=== PATIENT | female | born 1980 | race Caucasian/White ===

== ENCOUNTER → 2019-10-07 13:56 | Outpatient (CLI) | payer OTHER, SELFPAY ==
--- NOTE | ~2019-10-07 | MMUS_ITS ---
EXAMINATION: MM diagnostic jewell BI w arianne, US breast BI limited HISTORY: Reported lump left breast at 10:00. Patient reports 2:00 lump of the left breast. TECHNIQUE: 3-D ML, MLO, CC tomosynthesis images of both breasts were performed and synthetic 2-D imag es were generated. CAD analysis was submitted and interpreted. High resolution right upper outer quad rant and left upper inner and upper outer quadrant breast ultrasound was performed. COMPARISON: None BREAST PARENCHYMAL COMPOSITION: The breasts are heterogeneously dense, which may obscure small masses . FINDINGS: MAMMOGRAPHIC FINDINGS: There is a 1.6 cm rounded upper outer right breast partially obscured mass. No other suspicious mass of either breast is evident mammographically. No malignant calcification, a rchitectural distortion, skin thickening or retraction is detected. ULTRASOUND: Right breast: 9:00 3 cm from nipple: 1.4 x 0.7 x 1.1 cm multilocular cyst, benign in appearance 12:00 subareolar area: 4 x 5 mm simple cyst Left breast: 2-3:00 9 cm from nipple: Benign-appearing 3.5 x 8 mm lymph node IMPRESSION: 1. No mammographic evidence of malignancy 2. Routine annual mammographic screening is recommended BI-RADS Category 2: Benign finding(s). Reviewed, dictated and finalized at location A. RAL SERVICE TECHNICIAN IMPRESSION: 1. No mammographic evidence of malignancy 2. Routine annual mammographic screening is recommended BI-RADS Category 2: Benign finding(s).
== END ==
PROVIDERS: Visit Provider Nurse Practitioner
DX: N63.20 Unspecified lump in the left breast, unspecified quadrant (principal)
CPT/HCPCS: 76642; 77062; 77066; G0279

== ENCOUNTER 2019-12-24 07:42 | Outpatient (CLI) | payer OTHER, SELFPAY ==
--- NOTE | ~2019-12-24 | US_ITS ---
US breast LT limited DATE: 12/24/2019 08:14 INDICATION: Left breast lump for 2 months TECHNIQUE: Real-time imaging of the upper outer quadrant of left breast targeted to the current 1:00 area of complaint of left breast lump and previously reported to 2-3:00 lymph node COMPARISON: 10/07/2019 CT bilateral diagnostic digital mammogram 11/03/2019 bilateral Limited breast ultrasound examination FINDINGS: 1:00 3 cm from nipple at area of complaint of left breast lump: Parallel circumscribed hypo echoic approximately 4 x 6 mm lesion without internal vascularity or posterior shadowing. This may be a complicated cyst. Ultrasound-guided aspiration attempt is recommended, with immediate biopsy there after if the aspiration is not successful. 3:00 9 cm from nipple: Stable or slightly smaller parallel circumscribed benign-appearing 5.5 x 4.1 x 5.6 mm lymph node with uniform echogenicity and thickness of the cortex IMPRESSION: BI-RADS Category 4A: Suspicious abnormality; ultrasound-guided aspiration and if necessar y biopsy is recommended for 1:00 lesion 3 cm from nipple Reviewed, dictated and finalized at [facility]. Reviewed, dictated and finalized at location A. IMPRESSION: BI-RADS Category 4A: Suspicious abnormality; ultrasound-guided aspi ration and if necessary biopsy is recommended for 1:00 lesion 3 cm from nipple
== END 2019-12-24 07:43 | disposition home or self-care (01) ==
PROVIDERS: PCP Family Medicine; Visit Provider Nurse Practitioner
DX: N63.21 Unspecified lump in the left breast, upper outer quadrant (principal); R92.8 Other abnormal and inconclusive findings on diagnostic imaging of breast
CPT/HCPCS: 76642

== ENCOUNTER 2023-11-26 10:21 | Day surgery (SDC) | payer OTHER, SELFPAY ==
[2023-11-12 15:22] VITALS: BMI 24.2
[2023-11-13 14:01] VITALS: BMI 24.4
--- NOTE | 2023-11-25 16:34 | PM.HPGS ---
History of Present Illness History of Present Illness Consent: Risks, benefits, and alternatives have been discussed and questions answered. Patient agrees to proceed with procedure. Chief complaint: Abnormal Weight Loss Narrative: Nicki Harley is a 43 year old female with abnormal weight loss. 16 lb in last 2 years. She also has noticed and change in her bowel habits. At times caliber is extremely thin. Review of Systems Review of Systems: All systems reviewed & are unremarkable except as noted in HPI and below PMFSH Past Medical History Medical History Depression Hyperlipidemia Marital dysfunction Vertigo Social History Social History Smoking status: Former smoker Tobacco type: cigarettes Alcohol intake: current Alcohol use details: rarely Substance use type: does not use Living arrangements: with family Spiritual care concerns: No Meds Home Medications and Allergies Home Medications Medication Instructions Recorded Confirmed Type bupropion HCl 150 mg 24 hr tablet, 300 mg PO QAM 10/14/21 11/26/23 History extended release (Wellbutrin XL) levonorgestrel 20.4 mcg/24 hrs (8 1 device intrauterine ONCE 11/13/23 11/26/23 History yrs) 52 mg intrauterine device (Liletta) Allergies Allergy/AdvReac Type Severity Reaction Status Date / Time codeine AdvReac Severe nausea Verified 11/26/23 11:47 Exam Const: General: alert Orientation/consciousness: patient oriented x3 Resp: Auscultation: clear to auscultation bilaterally Cardio: Rhythm: regular rhythm GI: GI Palp: Yes Soft to palpation and No Tenderness to palpation present (GI) Neuro: General: patient oriented x3 Assessment and Plan Assessment and plan (1) Weight loss: Code(s): R63.4 - Abnormal weight loss Status: Acute Assessment and Plan: Colonoscopy with possible biopsy or polypectomy or cautery or injection of substances. (2) Change in bowel movement: Code(s): R19.8 - Other specified symptoms and signs involving the digestive system and abdomen Status: Acute
--- NOTE | 2023-11-26 07:28 | P.PNAN_ITS ---
Anes - Initial Pre Proc Eval Procedure: Operation Date: 11/26/23 13:00 Proposed Procedures p Diagnostic Colonoscopy - Ellis Sky MD Date/Time: 11/26/23 07:28 Surgeon: Ellis Sky MD Pre Op Diagnosis: Abnormal Weight Loss Patient Data Age: 43 Gender: F Height: 1.63 m Weight: 64.5 kg Allergies Allergy/AdvReac Type Severity Reaction Status Date / Time codeine AdvReac Severe nausea Verified 11/26/23 11:47 Home Medications Medication Instructions Recorded Confirmed Type bupropion HCl 150 mg 24 hr tablet, 300 mg PO QAM 10/14/21 11/26/23 History extended release (Wellbutrin XL) levonorgestrel 20.4 mcg/24 hrs (8 1 device intrauterine ONCE 11/13/23 11/26/23 History yrs) 52 mg intrauterine device (Liletta) Patient hx anesthesia problems: none Family hx anesthesia problems: none Results Review: All pre-operative results and documents have been reviewed as part of the pre- operative evaluation. [facility] Past Medical History Medical History (Updated 11/26/23 @ 07:28 by Baldemar Norwood DO) Depression Hyperlipidemia Marital dysfunction Vertigo Social History Social History Smoking status: Former smoker Tobacco type: cigarettes Alcohol intake: current Alcohol use details: rarely Substance use type: does not use Living arrangements: with family Spiritual care concerns: No Anes - Eval Final PreProcedure Day of Procedure 11/26/23 07:28 Patient weight: normal Heart: regular rate and rhythm Lungs: clear to auscultation and normal air movement Airway: Mallampati scale class II Neurological: alert and oriented Last oral intake: >/= 8 hours ASA classification: II Emergent: no Anesthetic plan: proceed Anesthesia type and monitoring: general GIVS and standard monitoring Results Review: All pre-operative results and documents have been reviewed as part of the pre- operative evaluation. Informed Consent: The patient's anesthetic plan and its attendant risks and benefits were discussed with the patient/family/POA. Questions were solicited and answers provided to the satisfaction of the patient/family/POA.
[2023-11-26 11:52] VITALS: BP 102/62; PULSE 94; RESP 16; TEMP 37.4; O2SAT 99
[2023-11-26] MEDS: LACTATED RINGERS 1,000 ML 150 ML IV CONT (12:08)
--- NOTE | 2023-11-26 13:01 | WPDANESPN ---
Anes - Prog Note Post-Op Date/Time: 11/26/23 13:01 Cardiovascular status: normal Respiratory status: normal Airway patency: baseline Mental status: baseline Post-Op hydration status: normal Vital Signs: Last Vital Signs Temp 37.4 C 11/26/23 11:52 Pulse 94 11/26/23 11:52 Resp 16 11/26/23 11:52 BP 102/62 11/26/23 11:52 Pulse Ox 99 11/26/23 11:52 O2 Del Method Room Air 11/26/23 11:52 Pain Score (VAS): 0 Post-procedural complaints: none Patient Feedback: Patient satisfied with anesthetic care. Other Findings: Patient vital signs back to baseline. Patient denies nausea and vomiting. Patient's pain under control. Patient OK for discharge.
[2023-11-26 13:19] VITALS: BP 129/98; PULSE 73; RESP 16; O2SAT 99
[2023-11-26 13:29] VITALS: BP 89/58; PULSE 71; RESP 16; O2SAT 100
[2023-11-26 13:39] VITALS: BP 91/67; PULSE 77; RESP 16; O2SAT 100
--- NOTE | 2023-11-26 13:53 | SUR.PHASEII ---
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
== END 2023-11-26 14:00 | disposition home or self-care (01) ==
PROVIDERS: PCP Family Medicine; Visit Provider Internal Medicine Gastroenterology
PROC: 0DJD8ZZ Inspection of Lower Intestinal Tract, Via Natural or Artificial Opening Endoscopic (ICD-10-PCS; CPT 45378; principal; 2023-11-26 13:00)
DX: R19.4 Change in bowel habit (principal)
CPT/HCPCS: 45378